=== PATIENT | female | born 1990 | race Two or more races ===

== ENCOUNTER 2020-09-27 00:36 | Emergency (ER) | payer OTHER ==
[2020-09-27 00:44] VITALS: BP 114/74; PULSE 90; TEMP 98.6; BMI 17.6
[2020-09-27] MEDS ORDERED: ONDANSETRON 4 MG/2 ML VIAL ONE (00:48)
[2020-09-27] MEDS ORDERED: SODIUM CHLORIDE 1,000 ML IV STA (01:07)
[2020-09-27 01:37] LABS: BASO % 0.5 % (0-2.0); HEMATOCRIT 31.6 % (32.4-45.2); HEMOGLOBIN 10.6 GM/dL (10.7-15.3); LYMPH % 9.9 % (8-40); MCH 27.8 pg (25.7-33.7); MCHC 33.6 g/dl (32.0-36.0); MEAN CELL VOLUME 82.7 fl (80-96); MONO % 3.6 % (3.8-10.2); PLATELET COUNT 385 K/MM3 (134-434); RBC 3.82 M/mm3 (3.60-5.2); RDW 17.6 % (11.6-15.6); WHITE BLOOD COUNT 9.5 K/mm3 (4.0-10.0)
[2020-09-27 01:47] LABS: POTASSIUM 3.6 mmol/L (3.5-5.1)
[2020-09-27 01:49] LABS: CALCIUM 8.7 mg/dL (8.5-10.1)
[2020-09-27 01:51] LABS: ALBUMIN 3.9 g/dl (3.4-5.0); BLOOD UREA NITROGEN 7.6 mg/dL (7-18)
[2020-09-27 01:54] LABS: CREATININE 0.6 mg/dL (0.55-1.3)
[2020-09-27 01:55] LABS: BILIRUBIN,TOTAL 0.3 mg/dL (0.2-1); TOT PROT 6.9 g/dl (6.4-8.2)
[2020-09-27 02:38] LABS: EPI CELLS 16 /uL (0-25.1); HYALINE CASTS 2 /uL (0-3.1); URINE APPEARANCE CLEAR; URINE BACTERIA 76 /uL (0-1359); URINE BILIRUBIN NEGATIVE (NEGATIVE); URINE COLOR YELLOW; URINE GLUCOSE (UA) NEGATIVE (NEGATIVE); URINE KETONE 2+ (NEGATIVE); URINE LEUK ESTERASE TRACE (NEGATIVE); URINE NITRITE NEGATIVE (NEGATIVE); URINE PROTEIN NEGATIVE (NEGATIVE); URINE RBC 185 /uL (0-23.9); URINE UROBILINOGEN 0.2 mg/dL (0.2-1.0); URINE WBC 21 /uL (0-25.8)
== END 2020-09-27 02:49 | disposition home or self-care (01) ==
LOC: JER 00:36
PROC: 3E0337Z Introduction of Electrolytic and Water Balance Substance into Peripheral Vein, Percutaneous Approach (ICD-10-PCS; principal; 2020-09-27)
DX: R11.2 Nausea with vomiting, unspecified (principal); F12.188 Cannabis abuse with other cannabis-induced disorder
CPT/HCPCS: 36415; 80053; 81003; 83690; 84703; 85025; 87086; 93005; 93010; 99285-25